=== PATIENT | male | born 1990 ===

== ENCOUNTER 2018-12-25 20:08 | Emergency (ER) | payer OTHER ==
[2018-12-25 21:04] VITALS: BP 112/56; PULSE 62; RESP 16; TEMP 98.3; O2SAT 97
--- NOTE | 2018-12-25 22:08 | ED PDOC ---
HPI: Abdomen Time Seen by Provider: 12/25/18 21:18 Chief Complaint (Nursing): Abdominal Pain Chief Complaint (Provider): Abdominal Pain History Per: Patient History/Exam Limitations: no limitations Onset/Duration Of Symptoms: Days (x4) Current Symptoms Are (Timing): Still Present Additional Complaint(s): 28 year old male presents to the ED for evaluation of dull abdominal pain onset four days ago. At onset, patient also had fever, chills, and nausea, but notes those symptoms have since resolved, just leaving him with the persistent non- radiating abdominal pain, worse with coughing or sneezing. Otherwise denies urinary symptoms and back pain. PMD: none provided Past Medical History Reviewed: Historical Data Vital Signs: Last Vital Signs Temp 98.3 F 12/25/18 21:01 Pulse 62 12/25/18 21:01 Resp 16 12/25/18 21:01 BP 112/56 L 12/25/18 21:01 Pulse Ox 97 12/25/18 21:01 - Medical History PMH: No Chronic Diseases - Surgical History Surgical History: No Surg Hx - Family History Family History: States: Unknown Family Hx - Social History Current smoker - smoking cessation education provided: No Alcohol: Social Drugs: Denies - Allergies Allergies/Adverse Reactions: Allergies Allergy/AdvReac Type Severity Reaction Status Date / Time No Known Allergies Allergy Verified 12/25/18 21:01 Review of Systems ROS Statement: Except As Marked, All Systems Reviewed And Found Negative Constitutional: Negative for: Fever, Chills Gastrointestinal: Positive for: Abdominal Pain (non-radiating). Negative for: Nausea Genitourinary Male: Negative for: Dysuria, Frequency, Incontinence Musculoskeletal: Negative for: Back Pain Physical Exam - Reviewed Nursing Documentation Reviewed: Yes Vital Signs Reviewed: Yes - Physical Exam Appears: Positive for: No Acute Distress Head Exam: Positive for: ATRAUMATIC, NORMOCEPHALIC Skin: Positive for: Normal Color, Warm Eye Exam: Positive for: Normal appearance ENT: Positive for: Normal ENT Inspection Neck: Positive for: Normal, Painless ROM, Supple Cardiovascular/Chest: Positive for: Regular Rate, Rhythm Respiratory: Positive for: Normal Breath Sounds. Negative for: Respiratory Distress Gastrointestinal/Abdominal: Positive for: Soft, Tenderness (right mid quadrant tenderness). Negative for: Mass, Guarding, Rebound, Other (mcburney's sign; crowder's sign) Back: Positive for: Normal Inspection Extremity: Positive for: Normal ROM (all extremities) Neurological/Psych: Positive for: Awake, Alert, Oriented (x3) - Laboratory Results Result Diagrams: 12/25/18 22:19 12/25/18 22:19 - ECG O2 Sat by Pulse Oximetry: 97 (RA) Pulse Ox Interpretation: Normal Medical Decision Making Medical Decision Making: A/P: Undifferentiated abdominal pain, possibly colitis, diverticulitis, or atypical appendicitis Time: 2134 Initial Plan: --CT abd/pelvis IV contrast --CMP --Lipase --CBC --Toradol 15mg IVP --Urinalysis 2342 CT abd/pelvis IV contrast FINDINGS: LUNG BASES: The lung bases appear clear. No pleural effusions are seen. LIVER: Unremarkable. GALLBLADDER AND BILE DUCTS: The gallbladder appears within normal limits. No radioopaque gallstones are seen . No biliary ductal dilatation is evident. PANCREAS: Unremarkable. SPLEEN: Unremarkable. ADRENAL GLANDS: Unremarkable. KIDNEYS, URETERS, AND BLADDER: The kidneys appear within normal limits. There is no hydronephrosis or hydroureter. No urinary calculi are seen. The urinary bladder appeared normal in size and configuration. STOMACH AND BOWEL: Unremarkable appearance of the stomach. No evidence of bowel obstruction. There is mild mucosal wall thickening of the ileal small intestinal tract with associated fluid in its lumen thought compatible with ileitis. Infectious or inflammatory etiologies are thought most likely. No evidence suggesting colitis. Mildly abundant fecal matter is present in the colon; most probably in the right hemicolon suggesting some degree of constipation. APPENDIX: No evidence of acute appendicitis on CT examination. PERITONEUM: No free fluid. No free air. LYMPH NODES: No lymphadenopathy is evident. REPRODUCTIVE: Unremarkable as visualized. VASCULATURE: No evidence of abdominal aortic aneurysm. BONES: No aggressive appearing osseous lesion. No acute osseous pathology evident. IMPRESSION: 1. Evidence of ileitis. 2. Evidence of constipation; most prevalent in the right hemicolon. 0000 All results explained to patient and strongly urged GI followup and workup for possible Inflammatory Bowel Condition Patient states he's feeling well, appears very well, and stable for outpatient followup Scribe Attestation: Documented by Susy Clement, acting as a scribe for César Diggs MD. Provider Scribe Attestation: All medical record entries made by the Scribe were at my direction and personally dictated by me. I have reviewed the chart and agree that the record accurately reflects my personal performance of the history, physical exam, medical decision making, and the department course for this patient. I have also personally directed, reviewed, and agree with the discharge instructions and disposition. Disposition - Clinical Impression Clinical Impression: Ileitis, Constipation - Disposition Referrals: West Mcdonald MD [Staff Provider] - Disposition: Routine/Home Disposition Time: 00:00 Condition: STABLE Instructions: Constipation, Adult (DC) Forms: [employer] ([place])
[2018-12-25 22:22] LABS: HEMOGLOBIN 12.1 g/dL (12.0-18.0); MEAN CELL VOLUME 63.8 fl (80.0-94.0); MEAN CORPUSCULAR HEMOGLOBIN 20.6 pg (27.0-31.0); MEAN CORPUSCULAR HGB CONC 32.2 g/dL (33.0-37.0); RBC 5.9 Mil/uL (4.40-5.90); RED CELL DISTRIBUTION WIDTH 15.9 % (11.5-14.5); WHITE BLOOD COUNT 6.4 K/uL (4.8-10.8)
[2018-12-25 22:26] LABS: SQUAMOUS EPITHIAL < 1 /hpf (0-5); URINE BILIRUBIN NEGATIVE (NEGATIVE); URINE BLOOD NEGATIVE (NEGATIVE); URINE CLARITY SLIGHTY-CLOUDY (Clear); URINE COLOR YELLOW (YELLOW); URINE GLUCOSE (UA) NEG (NEGATIVE); URINE LEUKOCYTE ESTERASE NEG Leu/uL (Negative); URINE PROTEIN NEGATIVE (NEGATIVE)
[2018-12-25 22:33] LABS: ALB/GLOB RATIO 1.6 (1.0-2.1); ALBUMIN 4.6 g/dL (3.5-5.0); ALT/SGPT 39 U/L (21-72); AST/SGOT 34 U/L (17-59); BLOOD UREA NITROGEN 22 mg/dl (9-20); CALCIUM 9.4 mg/dL (8.4-10.2); GFR NON-AFRICAN AMERICAN > 60; LIPASE 172 U/L (23-300)
[2018-12-25] MEDS ORDERED: Sodium Chloride 0.9% 50 ML IV ONE (22:37)
[2018-12-25] MEDS ORDERED: Iohexol 300 100 ML IJ ONE (22:37)
--- NOTE | 2018-12-26 10:56 | CT ---
Date of service: 12/25/2018 PROCEDURE: CT Abdomen and Pelvis with contrast HISTORY: R sided abd pain x 5 days COMPARISON: None. TECHNIQUE: Intravenous contrast dose: 95 cc Omnipaque 300. Radiation dose: Total exam DLP = <inf_radiation_dlp> mGy-cm. This CT exam was performed using one or more of the following dose reduction techniques: Automated exposure control, adjustment of the mA and/or kV according to patient size, and/or use of iterative reconstruction technique. FINDINGS: LOWER THORAX: Unremarkable. LIVER: Unremarkable. No gross lesion or ductal dilatation. GALLBLADDER AND BILE DUCTS: Unremarkable. PANCREAS: Unremarkable. No gross lesion or ductal dilatation. SPLEEN: Unremarkable. ADRENALS: Unremarkable. No mass. KIDNEYS AND URETERS: Unremarkable. No hydronephrosis. No solid mass. VASCULATURE: Unremarkable. No aortic aneurysm. No atherosclerotic calcification or mural plaque present. BOWEL: Unremarkable. No obstruction. No gross mural thickening. APPENDIX: A normal appendix is visualized in it's entirety. PERITONEUM: Unremarkable. No free fluid. No free air. LYMPH NODES: Unremarkable. No enlarged lymph nodes. BLADDER: Unremarkable. REPRODUCTIVE: Unremarkable. BONES: No acute fracture. OTHER FINDINGS: None. IMPRESSION: Unremarkable contrast enhanced CT of the abdomen and pelvis. Concordant results (preliminary interpretation) provided by [employer]. Procedure Completed: 23:07. Preliminary Report: Interpreted and electronically signed: 23:43. Final Interpretation: 10:52. December 26, 2018.
== END 2018-12-26 00:32 | disposition home or self-care (01) ==
LOC: H.ER 20:08
DX: K59.00 Constipation, unspecified (principal); K52.9 Noninfective gastroenteritis and colitis, unspecified
CPT/HCPCS: 74177; 80053; 81003; 83690; 85027; 96374; 99283; J1885; Q9967